=== PATIENT | male | born 1970 | race Caucasian/White ===

== ENCOUNTER 2017-04-08 01:01 | Inpatient (IN) | payer OTHER ==
[2017-04-08] MEDS: SOD CHLORIDE 0.9% 1,000 ML IV (02:03)
[2017-04-08 02:17] LABS: ADD MAN DIFF? NO
[2017-04-08 02:18] LABS: BASOPHIL # 0.1 10^3/ul (0.0-0.1); BASOPHILS % 0.6 % (0.0-2.0); EOSINOPHILS # 0.1 10^3/ul (0.0-0.5); EOSINOPHILS % 1.3 % (0.0-7.0); HEMATOCRIT 32.1 % (42.0-52.0); HEMOGLOBIN 10.4 g/dl (14.0-18.0); LYMPHOCYTES # 2.9 10^3/ul (0.8-2.9); MEAN CORPUSCULAR HEMOGLOBIN 27.2 pg (29.0-33.0); MEAN CORPUSCULAR HGB CONC 32.4 g/dl (32.0-37.0); MEAN PLATELET VOLUME 10.1 fl (7.4-10.4); MONOCYTES % 9.6 % (0.0-11.0); NEUTROPHIL # 6.5 10^3/ul (1.6-7.5); NEUTROPHILS % 60.5 % (39.0-77.0); PLATELET COUNT 594 10^3/UL (140-415); RED BLOOD COUNT 3.82 10^6/ul (4.70-6.10); RED CELL DISTRIBUTION WIDTH 14.2 % (11.5-14.5)
[2017-04-08 02:18] LABS: WHITE BLOOD COUNT 10.7 10^3/ul (4.8-10.8)
[2017-04-08 02:36] LABS: INR 1.15; PROTIME 14.9 Sec (11.9-14.9); PT RATIO 1.2
[2017-04-08 02:48] LABS: ALANINE AMINOTRANSFERASE 73 IU/L (13-69); ALBUMIN 3.9 g/dl (3.3-4.9); ALKALINE PHOSPHATASE 153 IU/L (42-121); ANION GAP 20 (8-16); ASPARTATE AMINO TRANSFERASE 40 IU/L (15-46); BILIRUBIN,INDIRECT 0.3 mg/dl (0-1.1); BILIRUBIN,TOTAL 0.3 mg/dl (0.2-1.3); BLOOD UREA NITROGEN 19 mg/dl (7-20); CALCIUM 9.7 mg/dl (8.4-10.2); CARBON DIOXIDE 23 mmol/L (21-31); CHLORIDE 101 mmol/L (97-110); CREATININE 1.06 mg/dl (0.61-1.24); GLUCOSE 117 mg/dl (70-220); LIPASE 884 U/L (23-300); POTASSIUM 4.2 mmol/L (3.5-5.1); SODIUM 140 mmol/L (135-144); TOTAL PROTEIN 8.2 g/dl (6.1-8.1)
[2017-04-08 03:00] LABS: B-TYPE NATRIURETIC PEPTIDE 976 PG/ML (0-125)
[2017-04-08 03:07] LABS: TROPONIN-I < 0.012 ng/ml (0.00-0.12)
[2017-04-08 03:34] LABS: AADO2 Arterial 117.3 mmHg (7.0-24.0); Allen Test ACCEPTAB; Arterial Base Excess -2.2 mmol/L (-3.0-3); Arterial Blood Gas Oxygen Sat 98.4 mmHG (95.0-98.0); Arterial COHb 0.3 % (0.0-3.0); Arterial Fraction of Oxyhgb 97.7 % (93.0-99.0); Arterial HCO3 20.6 mmol/L (22.0-26.0); Arterial MetHb 0.4 % (0.0-1.5); Arterial Total Hemglobin 9.9 g/dl (12.0-18.0); Arterial pCO2 28.8 mmhg (35-45); Blood Gas IEPAP 15/5; MODE MASK - BIPAP; Site Right Radial
[2017-04-08 04:46] LABS: ADD UMIC NO; UR ASCORBIC ACID NEGATIVE (NEGATIVE); UR BILIRUBIN (Dip) NEGATIVE (NEGATIVE); UR BLOOD (Dip) NEGATIVE (NEGATIVE); UR CLARITY CLEAR (CLEAR); UR COLOR YELLOW (YELLOW); UR GLUCOSE (Dip) NEGATIVE (NEGATIVE); UR KETONES (Dip) NEGATIVE (NEGATIVE); UR LEUKOCYTE ESTERASE (Dip) NEGATIVE Leu/ul (NEGATIVE); UR NITRITE (Dip) NEGATIVE (NEGATIVE); UR SPECIFIC GRAVITY (Dip) 1.014 (1.003-1.030); UR TOTAL PROTEIN (Dip) NEGATIVE (NEGATIVE); UR UROBILINOGEN (Dip) NEGATIVE (NEGATIVE)
[2017-04-08] MEDS ORDERED: BISACODYL (EC) 5 MG TAB PO (05:30)
[2017-04-08] MEDS ORDERED: ONDANSETRON 4 MG INJ IV (05:30)
[2017-04-08] MEDS ORDERED: NACL 0.9% 3 ML SYG IV (05:30)
[2017-04-08] MEDS ORDERED: LORAZEPAM 0.5 MG TAB PO (05:30)
[2017-04-08] MEDS ORDERED: ZOLPIDEM 5 MG TAB PO (05:30)
[2017-04-08 06:02] LABS: CREATINE KINASE 28 IU/L (23-200)
[2017-04-08 06:15] LABS: CK INDEX 1.3
[2017-04-08 06:24] LABS: CK-MB 0.35 ng/ml (0.0-2.4); TROPONIN-I < 0.012 ng/ml (0.00-0.12)
[2017-04-08] MEDS: BUMETANIDE 1 MG INJ IV (06:39)
[2017-04-08] MEDS: FAMOTIDINE 20 MG TAB PO ×2 (08:40→21:00)
[2017-04-08] MEDS: ASPIRIN 81 MG TAB PO (08:40)
[2017-04-08] MEDS: LISINOPRIL 5 MG TAB PO (08:41)
[2017-04-08] MEDS: ENOXAPARIN 40 MG/0.4 ML SYG SC (08:42)
[2017-04-08 11:00] LABS: CREATINE KINASE 41 IU/L (23-200)
[2017-04-08 11:14] LABS: CK-MB 0.39 ng/ml (0.0-2.4); TROPONIN-I < 0.012 ng/ml (0.00-0.12)
[2017-04-08] MEDS: MAGNESIUM SULFATE 2 GM/50 ML 50 ML IVPB (16:16)
[2017-04-08] MEDS: BUMETANIDE 0.5 MG TAB PO (17:35)
[2017-04-08] MEDS: LEVOFLOXACIN 750 MG TABLET NGT (17:36)
[2017-04-08] MEDS: ACETAMINOPHEN 325 MG TAB PO (17:36)
[2017-04-08] MEDS: ACCU-CHEK XX (17:37)
[2017-04-08] MEDS: METOPROLOL 25 MG TAB PO (21:00)
[2017-04-08] MEDS: HYDROCODONE/APAP (5/325) TAB PO (21:51)
[2017-04-09 00:49] LABS: OPIATES Positive (NEGATIVE)
[2017-04-09 00:51] LABS: AMPHETAMINE/METHAMPHETAMINE Negative (NEGATIVE); BARBITURATES Negative (NEGATIVE); BENZODIAZEPINES Negative (NEGATIVE); CANNABINOIDS Negative (NEGATIVE); COCAINE Negative (NEGATIVE)
[2017-04-09] MEDS ORDERED: LEVOFLOXACIN 750 MG TABLET NGT (06:00)
[2017-04-09] MEDS: BUMETANIDE 0.5 MG TAB PO ×2 (06:00→17:44)
[2017-04-09] MEDS: LEVOFLOXACIN 750 MG TABLET PO (06:00)
[2017-04-09 06:38] LABS: ADD MAN DIFF? NO
[2017-04-09 06:41] LABS: BASOPHIL # 0.1 10^3/ul (0.0-0.1); BASOPHILS % 0.7 % (0.0-2.0); EOSINOPHILS # 0.2 10^3/ul (0.0-0.5); EOSINOPHILS % 1.6 % (0.0-7.0); HEMATOCRIT 33.9 % (42.0-52.0); HEMOGLOBIN 10.5 g/dl (14.0-18.0); LYMPHOCYTES # 2.7 10^3/ul (0.8-2.9); LYMPHOCYTES % 27.1 % (15.0-51.0); MEAN CORPUSCULAR HEMOGLOBIN 26.9 pg (29.0-33.0); MEAN CORPUSCULAR VOLUME 86.7 fl (82.0-101.0); MEAN PLATELET VOLUME 9.3 fl (7.4-10.4); MONOCYTE # 0.7 10^3/ul (0.3-0.9); MONOCYTES % 7.5 % (0.0-11.0); NEUTROPHIL # 6.2 10^3/ul (1.6-7.5); NEUTROPHILS % 62.3 % (39.0-77.0); PLATELET COUNT 619 10^3/UL (140-415); RED BLOOD COUNT 3.91 10^6/ul (4.70-6.10); RED CELL DISTRIBUTION WIDTH 14.4 % (11.5-14.5)
[2017-04-09 06:41] LABS: WHITE BLOOD COUNT 9.9 10^3/ul (4.8-10.8)
[2017-04-09 07:21] LABS: ALANINE AMINOTRANSFERASE 60 IU/L (13-69); ALBUMIN 3.9 g/dl (3.3-4.9); ALBUMIN/GLOBULIN RATIO 0.92; ALKALINE PHOSPHATASE 155 IU/L (42-121); ANION GAP 17 (8-16); ASPARTATE AMINO TRANSFERASE 30 IU/L (15-46); BILIRUBIN,INDIRECT 0.3 mg/dl (0-1.1); BILIRUBIN,TOTAL 0.3 mg/dl (0.2-1.3); BLOOD UREA NITROGEN 15 mg/dl (7-20); CALCIUM 9.9 mg/dl (8.4-10.2); CARBON DIOXIDE 27 mmol/L (21-31); CHLORIDE 104 mmol/L (97-110); CHOLESTEROL 117 mg/dl (100-200); CREATININE 1.07 mg/dl (0.61-1.24); GLUCOSE 108 mg/dl (70-220); HDL CHOLESTEROL 23 mg/dl (27-67); LDL CHOLESTEROL,CALCULATED 70 mg/dl; MAGNESIUM 2.3 mg/dl (1.7-2.5); POTASSIUM 4.3 mmol/L (3.5-5.1); SODIUM 144 mmol/L (135-144); TOTAL PROTEIN 8.1 g/dl (6.1-8.1); TRIGLYCERIDES 118 mg/dl (0-149)
[2017-04-09 07:25] LABS: B-TYPE NATRIURETIC PEPTIDE 937 PG/ML (0-125)
[2017-04-09] MEDS: ACCU-CHEK XX ×2 (08:06→17:44)
[2017-04-09] MEDS: FAMOTIDINE 20 MG TAB PO ×2 (08:10→20:31)
[2017-04-09] MEDS: ASPIRIN 81 MG TAB PO (08:10)
[2017-04-09] MEDS: METOPROLOL 25 MG TAB PO ×2 (08:11→20:31)
[2017-04-09] MEDS: ENOXAPARIN 40 MG/0.4 ML SYG SC (08:14)
[2017-04-09] MEDS: HYDROCODONE/APAP (5/325) TAB PO ×2 (10:03→18:44)
[2017-04-09] MEDS: BUMETANIDE 1 MG INJ IV (11:00)
[2017-04-09] MEDS: ATORVASTATIN 40 MG TAB NGT (20:28)
[2017-04-09] MEDS: HYDROmorphONE 0.5 MG/0.5 ML SYG IV (20:36)
[2017-04-10] MEDS: HYDROmorphONE 0.5 MG/0.5 ML SYG IV ×7 (00:28→22:08)
[2017-04-10] MEDS: BUMETANIDE 0.5 MG TAB PO ×2 (06:02→16:14)
[2017-04-10] MEDS: ACCU-CHEK XX (07:25)
[2017-04-10] MEDS: ASPIRIN 81 MG TAB PO (07:59)
[2017-04-10] MEDS: FAMOTIDINE 20 MG TAB PO ×2 (07:59→21:46)
[2017-04-10] MEDS: METOPROLOL 25 MG TAB PO ×2 (08:00→21:46)
[2017-04-10 08:02] LABS: ADD MAN DIFF? NO
[2017-04-10] MEDS: ENOXAPARIN 40 MG/0.4 ML SYG SC (08:07)
[2017-04-10 08:11] LABS: WHITE BLOOD COUNT 8.2 10^3/ul (4.8-10.8)
[2017-04-10 08:11] LABS: BASOPHIL # 0.1 10^3/ul (0.0-0.1); BASOPHILS % 0.8 % (0.0-2.0); EOSINOPHILS # 0.1 10^3/ul (0.0-0.5); EOSINOPHILS % 1.5 % (0.0-7.0); HEMATOCRIT 29.5 % (42.0-52.0); HEMOGLOBIN 9.3 g/dl (14.0-18.0); LYMPHOCYTES # 2.6 10^3/ul (0.8-2.9); MEAN CORPUSCULAR HEMOGLOBIN 27.1 pg (29.0-33.0); MEAN CORPUSCULAR HGB CONC 31.5 g/dl (32.0-37.0); MEAN PLATELET VOLUME 9.4 fl (7.4-10.4); MONOCYTE # 0.8 10^3/ul (0.3-0.9); MONOCYTES % 9.6 % (0.0-11.0); NEUTROPHIL # 4.6 10^3/ul (1.6-7.5); NEUTROPHILS % 55.6 % (39.0-77.0); PLATELET COUNT 533 10^3/UL (140-415); RED BLOOD COUNT 3.43 10^6/ul (4.70-6.10); RED CELL DISTRIBUTION WIDTH 14.2 % (11.5-14.5)
[2017-04-10 08:35] LABS: ANION GAP 15 (8-16); BLOOD UREA NITROGEN 18 mg/dl (7-20); CALCIUM 9.3 mg/dl (8.4-10.2); CARBON DIOXIDE 24 mmol/L (21-31); CHLORIDE 104 mmol/L (97-110); GLUCOSE 100 mg/dl (70-220); POTASSIUM 4.1 mmol/L (3.5-5.1); SODIUM 139 mmol/L (135-144)
[2017-04-10 08:36] LABS: MAGNESIUM 2.1 mg/dl (1.7-2.5)
[2017-04-10 10:20] LABS: URIC ACID 7.4 mg/dl (3.1-7.9)
[2017-04-10] MEDS: LEVOFLOXACIN 750 MG TABLET PO (11:00)
[2017-04-10] MEDS: FERROUS SULFATE (EC) 325 MG TAB PO ×2 (11:16→21:46)
[2017-04-10] MEDS: DOCUSATE SODIUM 100 MG CAP PO (11:16)
[2017-04-10] MEDS: AZTREONAM 2 GM in DEXTROSE 5% 100 ML IVPB ×2 (12:00→22:07)
[2017-04-10] MEDS: LACTOBACILLUS RHAMNOSUS CAP PO ×2 (13:41→21:46)
[2017-04-10] MEDS: ATORVASTATIN 40 MG TAB NGT (21:46)
[2017-04-11] MEDS: HYDROmorphONE 0.5 MG/0.5 ML SYG IV ×4 (01:12→22:56)
[2017-04-11] MEDS: BUMETANIDE 0.5 MG TAB PO ×2 (06:33→16:16)
[2017-04-11] MEDS: ENOXAPARIN 40 MG/0.4 ML SYG SC (08:02)
[2017-04-11 08:12] LABS: ADD MAN DIFF? NO
[2017-04-11 08:15] LABS: WHITE BLOOD COUNT 8.1 10^3/ul (4.8-10.8)
[2017-04-11 08:15] LABS: BASOPHIL # 0.1 10^3/ul (0.0-0.1); EOSINOPHILS # 0.2 10^3/ul (0.0-0.5); HEMATOCRIT 30.3 % (42.0-52.0); HEMOGLOBIN 9.7 g/dl (14.0-18.0); LYMPHOCYTES # 2.4 10^3/ul (0.8-2.9); MEAN CORPUSCULAR HEMOGLOBIN 27.4 pg (29.0-33.0); MEAN CORPUSCULAR VOLUME 85.6 fl (82.0-101.0); MEAN PLATELET VOLUME 9.5 fl (7.4-10.4); MONOCYTE # 0.8 10^3/ul (0.3-0.9); MONOCYTES % 9.9 % (0.0-11.0); NEUTROPHIL # 4.6 10^3/ul (1.6-7.5); NEUTROPHILS % 56.7 % (39.0-77.0); PLATELET COUNT 513 10^3/UL (140-415); RED BLOOD COUNT 3.54 10^6/ul (4.70-6.10); RED CELL DISTRIBUTION WIDTH 13.9 % (11.5-14.5)
[2017-04-11 08:45] LABS: ANION GAP 17 (8-16); BLOOD UREA NITROGEN 20 mg/dl (7-20); CALCIUM 9.5 mg/dl (8.4-10.2); CARBON DIOXIDE 25 mmol/L (21-31); CHLORIDE 103 mmol/L (97-110); GLUCOSE 97 mg/dl (70-220); POTASSIUM 4.3 mmol/L (3.5-5.1); SODIUM 141 mmol/L (135-144)
[2017-04-11 08:49] LABS: PHOSPHORUS 5.5 mg/dl (2.5-4.9)
[2017-04-11] MEDS: METOPROLOL 25 MG TAB PO ×2 (09:07→20:41)
[2017-04-11] MEDS: ASPIRIN 81 MG TAB PO (09:08)
[2017-04-11] MEDS: DOCUSATE SODIUM 100 MG CAP PO (09:08)
[2017-04-11] MEDS: LACTOBACILLUS RHAMNOSUS CAP PO ×2 (09:08→20:41)
[2017-04-11] MEDS: AZTREONAM 2 GM in DEXTROSE 5% 100 ML IVPB ×2 (09:08→20:43)
[2017-04-11] MEDS: FAMOTIDINE 20 MG TAB PO ×2 (09:08→20:41)
[2017-04-11] MEDS: FERROUS SULFATE (EC) 325 MG TAB PO ×2 (09:08→20:41)
[2017-04-11] MEDS: DICLOFENAC SODIUM 1% GEL 100 GM TUBE TP ×3 (13:00→20:48)
[2017-04-11] MEDS: traMADol-APAP 37.5-325 1 TAB PO ×2 (14:08→20:57)
[2017-04-11] MEDS: HYDROmorphONE 2 MG TAB PO ×2 (16:04→18:54)
[2017-04-11 19:03] LABS: C-REACTIVE PROTEIN 6.9 mg/dl (0.0-0.9)
[2017-04-11 19:59] LABS: ERYTHROCYTE SEDIMENTATION RATE 90 mm/Hr (0-15)
[2017-04-11] MEDS ORDERED: HYDROmorphONE 1 MG/ML SYG IV (20:03)
[2017-04-11] MEDS: ATORVASTATIN 40 MG TAB NGT (20:42)
[2017-04-12] MEDS: HYDROmorphONE 2 MG TAB PO ×3 (03:38→20:45)
[2017-04-12] MEDS: BUMETANIDE 0.5 MG TAB PO ×2 (05:26→18:45)
[2017-04-12] MEDS: traMADol-APAP 37.5-325 1 TAB PO ×2 (05:30→12:33)
[2017-04-12 07:48] LABS: ADD MAN DIFF? NO
[2017-04-12 07:55] LABS: WHITE BLOOD COUNT 7.2 10^3/ul (4.8-10.8)
[2017-04-12 07:55] LABS: BASOPHIL # 0.1 10^3/ul (0.0-0.1); EOSINOPHILS # 0.2 10^3/ul (0.0-0.5); EOSINOPHILS % 2.8 % (0.0-7.0); HEMATOCRIT 31.3 % (42.0-52.0); HEMOGLOBIN 9.8 g/dl (14.0-18.0); LYMPHOCYTES # 2.1 10^3/ul (0.8-2.9); LYMPHOCYTES % 29.1 % (15.0-51.0); MEAN CORPUSCULAR HEMOGLOBIN 26.7 pg (29.0-33.0); MEAN CORPUSCULAR HGB CONC 31.3 g/dl (32.0-37.0); MEAN CORPUSCULAR VOLUME 85.3 fl (82.0-101.0); MEAN PLATELET VOLUME 9.4 fl (7.4-10.4); MONOCYTE # 0.7 10^3/ul (0.3-0.9); MONOCYTES % 9.4 % (0.0-11.0); NEUTROPHIL # 4.1 10^3/ul (1.6-7.5); NEUTROPHILS % 57.3 % (39.0-77.0); PLATELET COUNT 489 10^3/UL (140-415); RED BLOOD COUNT 3.67 10^6/ul (4.70-6.10); RED CELL DISTRIBUTION WIDTH 13.7 % (11.5-14.5)
[2017-04-12 08:08] LABS: ANION GAP 18 (8-16); BLOOD UREA NITROGEN 18 mg/dl (7-20); CALCIUM 9.5 mg/dl (8.4-10.2); CARBON DIOXIDE 25 mmol/L (21-31); CHLORIDE 101 mmol/L (97-110); GLUCOSE 96 mg/dl (70-220); POTASSIUM 4.3 mmol/L (3.5-5.1); SODIUM 140 mmol/L (135-144)
[2017-04-12 08:09] LABS: PHOSPHORUS 5.2 mg/dl (2.5-4.9)
[2017-04-12] MEDS: FERROUS SULFATE (EC) 325 MG TAB PO ×2 (08:57→20:42)
[2017-04-12] MEDS: ASPIRIN 81 MG TAB PO (08:57)
[2017-04-12] MEDS: LACTOBACILLUS RHAMNOSUS CAP PO ×2 (08:57→20:41)
[2017-04-12] MEDS: FAMOTIDINE 20 MG TAB PO ×2 (08:58→20:41)
[2017-04-12] MEDS: METOPROLOL 25 MG TAB PO ×2 (08:58→20:45)
[2017-04-12] MEDS: ENOXAPARIN 40 MG/0.4 ML SYG SC (09:00)
[2017-04-12] MEDS: DICLOFENAC SODIUM 1% GEL 100 GM TUBE TP ×4 (09:08→20:47)
[2017-04-12] MEDS: AZTREONAM 2 GM in SOD CHLORIDE 0.9% 100 ML IVPB ×2 (12:39→20:38)
[2017-04-12] MEDS: IBUPROFEN 800 MG TAB PO ×2 (14:43→23:13)
[2017-04-12 16:38] LABS: PROCALCITONIN <0.10 ng/mL (<0.10)
[2017-04-12] MEDS: ATORVASTATIN 40 MG TAB NGT (20:41)
[2017-04-13] MEDS: HYDROmorphONE 2 MG TAB PO ×5 (00:36→22:13)
[2017-04-13] MEDS: BUMETANIDE 0.5 MG TAB PO ×2 (06:00→17:28)
[2017-04-13 08:27] LABS: ADD MAN DIFF? NO
[2017-04-13 08:36] LABS: BASOPHIL # 0.1 10^3/ul (0.0-0.1); BASOPHILS % 0.9 % (0.0-2.0); EOSINOPHILS # 0.2 10^3/ul (0.0-0.5); EOSINOPHILS % 3.7 % (0.0-7.0); HEMATOCRIT 33.1 % (42.0-52.0); HEMOGLOBIN 10.4 g/dl (14.0-18.0); LYMPHOCYTES # 2.1 10^3/ul (0.8-2.9); MEAN CORPUSCULAR HEMOGLOBIN 26.8 pg (29.0-33.0); MEAN CORPUSCULAR HGB CONC 31.4 g/dl (32.0-37.0); MEAN CORPUSCULAR VOLUME 85.3 fl (82.0-101.0); MEAN PLATELET VOLUME 9.4 fl (7.4-10.4); MONOCYTE # 0.5 10^3/ul (0.3-0.9); MONOCYTES % 7.9 % (0.0-11.0); NEUTROPHIL # 3.6 10^3/ul (1.6-7.5); NEUTROPHILS % 55.2 % (39.0-77.0); PLATELET COUNT 508 10^3/UL (140-415); RED BLOOD COUNT 3.88 10^6/ul (4.70-6.10); RED CELL DISTRIBUTION WIDTH 13.8 % (11.5-14.5)
[2017-04-13 08:36] LABS: WHITE BLOOD COUNT 6.4 10^3/ul (4.8-10.8)
[2017-04-13 08:55] LABS: MAGNESIUM 2.1 mg/dl (1.7-2.5)
[2017-04-13 08:55] LABS: PHOSPHORUS 4.5 mg/dl (2.5-4.9)
[2017-04-13] MEDS: LACTOBACILLUS RHAMNOSUS CAP PO ×2 (08:58→20:35)
[2017-04-13] MEDS: ASPIRIN 81 MG TAB PO (08:58)
[2017-04-13] MEDS: FAMOTIDINE 20 MG TAB PO ×2 (08:58→20:34)
[2017-04-13] MEDS: FERROUS SULFATE (EC) 325 MG TAB PO ×2 (08:58→20:35)
[2017-04-13] MEDS: METOPROLOL 25 MG TAB PO ×2 (08:59→20:36)
[2017-04-13 09:02] LABS: ANION GAP 18 (8-16); BLOOD UREA NITROGEN 20 mg/dl (7-20); CALCIUM 9.7 mg/dl (8.4-10.2); CARBON DIOXIDE 24 mmol/L (21-31); CHLORIDE 104 mmol/L (97-110); CREATININE 0.87 mg/dl (0.61-1.24); GLUCOSE 91 mg/dl (70-220); POTASSIUM 4.8 mmol/L (3.5-5.1); SODIUM 141 mmol/L (135-144)
[2017-04-13] MEDS: DICLOFENAC SODIUM 1% GEL 100 GM TUBE TP ×4 (09:04→20:37)
[2017-04-13] MEDS: ENOXAPARIN 40 MG/0.4 ML SYG SC (09:09)
[2017-04-13] MEDS: LIDOCAINE 1% (MPF) 5 ML VIAL SC (11:20)
[2017-04-13] MEDS: SOD CHLORIDE 0.9% 100 ML (11:50)
[2017-04-13] MEDS: IBUPROFEN 800 MG TAB PO ×2 (12:28→20:35)
[2017-04-13] MEDS: AZTREONAM 2 GM in SOD CHLORIDE 0.9% 100 ML IVPB ×2 (14:06→20:38)
[2017-04-13] MEDS: ATORVASTATIN 40 MG TAB NGT (20:34)
[2017-04-14] MEDS: IBUPROFEN 800 MG TAB PO (05:38)
[2017-04-14] MEDS: BUMETANIDE 0.5 MG TAB PO ×2 (05:38→18:41)
[2017-04-14 08:46] LABS: ADD MAN DIFF? NO
[2017-04-14 08:55] LABS: WHITE BLOOD COUNT 6.9 10^3/ul (4.8-10.8)
[2017-04-14 08:55] LABS: BASOPHIL # 0.1 10^3/ul (0.0-0.1); BASOPHILS % 0.7 % (0.0-2.0); EOSINOPHILS # 0.3 10^3/ul (0.0-0.5); EOSINOPHILS % 4.1 % (0.0-7.0); HEMATOCRIT 29.9 % (42.0-52.0); HEMOGLOBIN 9.3 g/dl (14.0-18.0); LYMPHOCYTES # 2.2 10^3/ul (0.8-2.9); LYMPHOCYTES % 31.6 % (15.0-51.0); MEAN CORPUSCULAR HEMOGLOBIN 26.4 pg (29.0-33.0); MEAN CORPUSCULAR HGB CONC 31.1 g/dl (32.0-37.0); MEAN CORPUSCULAR VOLUME 84.9 fl (82.0-101.0); MEAN PLATELET VOLUME 9.8 fl (7.4-10.4); MONOCYTE # 0.7 10^3/ul (0.3-0.9); MONOCYTES % 10.6 % (0.0-11.0); NEUTROPHIL # 3.6 10^3/ul (1.6-7.5); NEUTROPHILS % 52.7 % (39.0-77.0); PLATELET COUNT 451 10^3/UL (140-415); RED BLOOD COUNT 3.52 10^6/ul (4.70-6.10); RED CELL DISTRIBUTION WIDTH 14.1 % (11.5-14.5)
[2017-04-14 09:16] LABS: ANION GAP 17 (8-16); BLOOD UREA NITROGEN 17 mg/dl (7-20); CALCIUM 9.3 mg/dl (8.4-10.2); CARBON DIOXIDE 24 mmol/L (21-31); CHLORIDE 106 mmol/L (97-110); CREATININE 0.89 mg/dl (0.61-1.24); GLUCOSE 85 mg/dl (70-220); SODIUM 143 mmol/L (135-144)
[2017-04-14] MEDS: FERROUS SULFATE (EC) 325 MG TAB PO ×2 (10:12→20:46)
[2017-04-14] MEDS: FAMOTIDINE 20 MG TAB PO ×2 (10:13→20:46)
[2017-04-14] MEDS: LACTOBACILLUS RHAMNOSUS CAP PO ×2 (10:13→20:46)
[2017-04-14] MEDS: ASPIRIN 81 MG TAB PO (10:13)
[2017-04-14] MEDS: METOPROLOL 25 MG TAB PO ×2 (10:15→20:45)
[2017-04-14] MEDS: DICLOFENAC SODIUM 1% GEL 100 GM TUBE TP ×4 (10:22→20:47)
[2017-04-14] MEDS: ENOXAPARIN 40 MG/0.4 ML SYG SC (10:25)
[2017-04-14] MEDS: AZTREONAM 2 GM in SOD CHLORIDE 0.9% 100 ML IVPB ×2 (11:11→18:42)
[2017-04-14] MEDS: HYDROmorphONE 2 MG TAB PO (12:23)
[2017-04-14] MEDS: ASCORBIC ACID 500 MG TAB PO ×2 (14:44→20:46)
[2017-04-14] MEDS: traMADol-APAP 37.5-325 1 TAB PO (15:54)
[2017-04-14] MEDS: ATORVASTATIN 40 MG TAB NGT (20:46)
== END 2017-04-14 20:57 | disposition home health service (06) | DRG 292 ==
LOC: E/R 01:01 → TEL 05:01
PROC: 02HV33Z Insertion of Infusion Device into Superior Vena Cava, Percutaneous Approach (ICD-10-PCS; principal; 2017-04-13)
DX: I11.0 Hypertensive heart disease with heart failure (principal); T81.4XXA Infection following a procedure, initial encounter; R65.10 Systemic inflammatory response syndrome (SIRS) of non-infectious origin without acute organ dysfunction; Z95.1 Presence of aortocoronary bypass graft; I50.33 Acute on chronic diastolic (congestive) heart failure; E78.5 Hyperlipidemia, unspecified; I25.10 Atherosclerotic heart disease of native coronary artery without angina pectoris; Y83.2 Surgical operation with anastomosis, bypass or graft as the cause of abnormal reaction of the patient, or of later complication, without mention of misadventure at the time of the procedure; Y92.238 Other place in hospital as the place of occurrence of the external cause; M79.675 Pain in left toe(s); D64.9 Anemia, unspecified
CPT/HCPCS: 36415; 36569; 36600; 71045; 71046; 73630-LT; 76604; 76937; 80048; 80053; 80061; 80307; 81003; 82550; 82553; 82803; 82962; 83690; 83735; 83880; 84100; 84145; 84443; 84484; 84560; 85025; 85610; 85651; 86140; 87040; 87400; 93005; 93306; 94660; 97161; 99291-25